=== PATIENT | female | born 1970 | race Caucasian/White ===

== ENCOUNTER 2017-06-08 20:11 | Outpatient (CLI) ==
[2012-10-29 12:13] VITALS: TEMP 97.6
[2016-05-23 11:24] VITALS: BMI 23.8
== END 2017-06-08 20:30 | disposition home or self-care (01) ==
LOC: AMBL 20:11
PROVIDERS: ATTEND Family Medicine
DX: S99.911A Unspecified injury of right ankle, initial encounter (principal); W00.0XXA Fall on same level due to ice and snow, initial encounter

== ENCOUNTER 2020-12-02 16:12 | Inpatient (IN) ==
[2020-12-02] MEDS ORDERED: VISTARIL INJ IM STA (17:11)
[2020-12-02] MEDS ORDERED: TORADOL IM STA (17:16)
[2020-12-02 17:26] LABS: BASOPHILS # (AUTO) 0.1 K/uL (0-0.2); BASOPHILS % (AUTO) 0.5 % (0.0-3.0); EOSINOPHILS # (AUTO) 0.2 K/ul (0.0-0.7); EOSINOPHILS % (AUTO) 1.5 % (0.0-7.0); HEMATOCRIT 46.7 % (37.0-47.0); HEMOGLOBIN 16.2 g/dl (12.0-16.0); IMMATURE GRANULOCYTE # (AUTO) 0.2 (0.0-1.0); IMMATURE GRANULOCYTE % (AUTO) 1.4 % (0.0-5.0); LYMPHOCYTES # (AUTO) 0.8 K/uL (0.60-3.4); LYMPHOCYTES % (AUTO) 7.7 (10.0-50.0); MEAN CORPUSCULAR HGB CONC 34.7 (31.8-35.4); MEAN CORPUSCULAR VOLUME 83.5 fl (81.0-99.0); MONOCYTES # (AUTO) 0.9 K/uL (0.4-2.0); MONOCYTES % (AUTO) 8.6 (0-10); NEUTROPHILS # (AUTO) 8.5 K/ul (2.0-6.9); NEUTROPHILS % (AUTO) 80.3 % (42.2-75.2); PLATELET COUNT 236 10^3/uL (140-440); RDW COEFFICIENT OF VARIATION 12.7 % (11.6-14.8); RED BLOOD COUNT 5.59 10^6/ul (4.20-5.40); WHITE BLOOD COUNT 10.62 K/ul (4.6-10.2)
[2020-12-02 17:39] LABS: ALANINE AMINOTRANSFERASE 70.4 U/L (0-35); ALBUMIN 4.24 g/dL (3.5-5.0); ALKALINE PHOSPHATASE 272.9 U/L (38-126); ASPARTATE AMINO TRANSFERASE 48.4 U/L (14-36); BILIRUBIN,TOTAL 0.76 mg/dL (0.2-1.3); BLOOD UREA NITROGEN 8.3 mg/dL (7-17); CALCIUM 9.11 mg/dL (8.4-10.2); CARBON DIOXIDE 19.9 mmol/L (22-30.0); CHLORIDE 100.8 mmol/L (98-107); CREATININE 0.54 mg/dL (0.60-1.30); POTASSIUM 4.63 mmol/L (3.5-5.1); SODIUM 129.1 mmol/L (134.5-145); TOTAL PROTEIN 6.98 g/dL (6.3-8.2)
[2020-12-02 17:43] LABS: SERUM PREGNANCY NEGATIVE (NEGATIVE)
[2020-12-02] MEDS ORDERED: HUMULIN R SUBCUT ONE (17:50)
[2020-12-02 18:03] LABS: BILIRUBIN,URINE Negative (NEGATIVE); CLARITY,URINE Clear (CLEAR); COLOR,URINE Yellow (YELLOW); KETONES,URINE 1+ (NEGATIVE); LEUKOCYTE ESTERASE ,URINE Negative (NEGATIVE); NITRITE,URINE Negative (NEGATIVE); PH,URINE 5.5 (5-9); PROTEIN,URINE Negative (NEGATIVE); URINE, BLOOD 1+ (NEGATIVE); UROBILINOGEN,URINE 0.2 (0.2)
--- NOTE | 2020-12-02 18:06 | CT ---
Exam: CT scan of the thorax without contrast. Date: 12/02/2020. Comparison: 01/01/2016. HISTORY: Chest mass. TECHNIQUE: Helical scan of the thorax was performed without contrast. FINDINGS: The thoracic inlet is normal. There is a stable 1.3 x 1.7 cm precarinal calcified lymph n ode with additional calcified lymph nodes also present in the mediastinum. The caliber of the cardia c chambers and thoracic aorta are normal. The spleen has a uniform attenuation. The attenuation of the liver is as low as 34 Hounsfield units. Cholecystectomy is noted. The stomach, pancreas and adr enal glands are normal. No acute osseous abnormalities are seen. Evaluation of lung window settings demonstrates scattered granulomatous calcifications. No suspiciou s pulmonary nodules, pleural fluid or consolidation is present. Impression: No acute intrathoracic findings. Old granulomatous disease. Hepatic steatosis. All CT scans are performed using dose optimization techniques as appropriate to the performed exam an d include at least one of the following: Automated exposure control, adjustment of the mA and/or kV according t o size, and the use of iterative reconstruction technique.
[2020-12-02 18:13] LABS: AMPHETAMINE SCREEN,URINE POSITIVE (NEGATIVE); BARBITURATE SCREEN,URINE NEGATIVE (NEGATIVE); BENZODIAZEPINES SCREEN,URINE NEGATIVE (NEGATIVE); CANNABINOID SCREEN,URINE POSITIVE (NEGATIVE); COCAIN SCREEN,URINE NEGATIVE (NEGATIVE); METHADONE URINE SCREEN NEGATIVE (NEGATIVE); METHAMPHETAMINES SCREEN,URINE POSITIVE (NEGATIVE); OPIATE SCREEN,URINE NEGATIVE (NEGATIVE); OXYCODONE URINE SCREEN NEGATIVE (NEGATIVE); PHENCYCLIDINE SCREEN,URINE NEGATIVE (NEGATIVE); PROPOXYPHENE URINE SCREEN NEGATIVE (NEGATIVE); TRICYCLIC ANTIDEPRESSANTS URIN NEGATIVE (NEGATIVE)
[2020-12-02 18:15] LABS: GLUCOSE, URINE (UA) 3+ (NEGATIVE)
[2020-12-02 18:16] LABS: BACTERIA,URINE 1+ (NOT PRESENT); URINE RBC, MICROSCOPIC 0-2 (0-2)
[2020-12-02 18:38] LABS: ABG O2 HGB 92.6 % (95-100); ABG PH 7.43 (7.35-7.45); BEecf -3.7 (-2.0-3.0); COHb 4.2 (0.5-1.5); HCO3 20.6 (21-28); MetHb 1.3 (0-1.5); TCO2 21.6 (19-24); sO2 96.3 % (94-98); tHb 16.4 g/dl (11.7-17.4)
--- NOTE | 2020-12-02 18:39 | ED.PDOC ---
General ED Provider: Dr. KYLEE GRIFFITH Chief Complaint: Diabetes Stated Complaint: Having severe vaginal pain from severe infection which she attributes to her uncontrolled blood glucose levels Time Seen by Provider: 12/02/20 16:37 Mode of Arrival: Walk-In Information Source: Patient Exam Limitations: No limitations Nursing and Triage Documentation Reviewed and Agree: Yes Does patient meet sepsis criteria?: No System Inflammatory Response Syndrome: Not Applicable Sepsis Protocol: For patient's 13 years and over: Temp is 96.8 and below OR 101 and greater Pulse >90 BPM Resp >20/minute Acutely Altered Mental Status Are patient's symptoms suggestive of a new infection, such as: -Pneumonia -Skin, Soft Tissue -Endocarditis -UTI -Bone, Joint Infection -Implantable Device -Acute Abdominal Infection -Wound Infection -Meningitis -Blood Stream Catheter Infection -Unknown Endocrine Complaint Exam Diabetic Complication Complaint/Exam Onset/Duration: 24 hrs-severe Vulvar pain and elevate BS Symptoms Are: Still present Timing: Constant Initial Severity: Moderate Current Severity: Severe Character: Alert Aggravating: Reports Recent illness Alleviating: Reports None Associated Signs and Symptoms: Reports Polydipsia, Polyuria and Abdominal pain Related History: Reports DM 2 and Insulin requiring; Denies Controlled and Compliant Last Glucometer Reading: > 500 Cardiac Risk Factors: Reports DM, Hypertension and Family history Related Surgical History: Reports None Acetone on Breath: No Dry Mucous Membranes: No Kussmaul Respirations: No Meningeal Signs: No Focal Weakness: None Focal Sensory Loss: None Gait: Unable Nystagmus Present: No Gag Reflex Present: Yes Finger to Nose: Normal Babinski Sign: Negative Right and Negative Left Differential Diagnoses: Hyperglycemia Review of Systems Review Of Systems Constitutional: Reports No symptoms Eyes: Reports No symptoms Ears, Nose, Mouth, Throat: Reports No symptoms Respiratory: Reports No symptoms Cardiac: Reports No symptoms GI: Reports No symptoms : Reports Burning, Dysuria, Frequency and Pain (Genital) Musculoskeletal: Reports No symptoms Skin: Reports No symptoms Neurological: Reports No symptoms Endocrine: Reports No symptoms Hematologic/Lymphatic: Reports No symptoms All Other Systems: Reviewed and Negative [facility] Medical History Anxiety Bipolar disorder Depression Malignant neoplasm of ovary Family History Mother Cardiac disease Grandfather/Grandmother Breast cancer, left 19 CHILD No problems noted. Other Cerebral palsy Epilepsy Social History Smoking and tobacco status: Current every day smoker Surgical History History of respiratory system surgery Status post cholecystectomy Status post hysterectomy Female Reproductive History Menstrual Hx Hysterectomy: Yes Hx Tubal Ligation: No Physical Exam Physical Exam Appearance: Reports Ill-appearing and Obese Ill-appearing: Moderate Pain Distress: Severe Eyes: Reports ALFA, EOMI, Conjunctiva clear and Conjunctiva inflammed ENT: Reports Ears normal, Nose normal and Oropharynx normal Neck: Supple Respiratory: Reports Airway patent, Breath sounds clear, Breath sounds equal and Breath sounds diminished Cardiovascular: Reports RRR, Pulses normal, No rub and No murmur GI/: Reports Soft, Nontender, No masses, Bowel sounds normal and No Organomegaly Musculoskeletal: Reports Normal strength, ROM intact and No edema Skin: Reports Warm, Dry and Normal color Neurological: Reports Sensation intact, Motor intact, Reflexes intact, Cranial nerves intact, Alert and Oriented Psychiatric: Reports Affect appropriate, Mood appropriate and Anxious Interpretation Radiology Interpretation Exam Interpreted: CT Scan ( stable 1.3 x 1.7 cm precarinal calcified lymph node with additional calcified lymph nodes also present in the mediastinum. ) EKG Interpretation Time of EKG #1: 20:17 Rate: Normal Rhythm: Sinus Ectopy: None Henderson: Left (JONNY)) ST Segment: Normal Interpretation: poss old septal infarct Re-Evaluation Re-Evaluation Time of Re-Evaluation: 20:00 Status: Improved Vital Signs Stable: Yes Appearance: NAD Lungs: Clear Skin: Warm and Dry Neuro: Alert and Oriented X3 CV: RRR Critical Care Note Critical Care Note Total Critical Care Time (mins): 60 Course Course Hematology/Chemistry: 12/02/20 17:20 12/02/20 17:20 Orders, Labs, Meds: Lab Review 12/02/20 12/02/20 12/02/20 16:40 16:40 17:20 WBC RBC Hgb Hct MCV MCH MCHC RDW Coeff of Juani Plt Count Immature Gran % (Auto) Neut % (Auto) Lymph % (Auto) Bledsoe % (Auto) Eos % (Auto) Baso % (Auto) Neut # (Auto) Lymph # (Auto) Bledsoe # (Auto) Eos # (Auto) Baso # (Auto) Immature Gran # (Auto) Puncture Site Base Excess O2 Saturation ABG pH ABG pCO2 ABG pO2 ABG HCO3 ABG Total CO2 Charan Test Hemoglobin Oxyhemoglobin Carboxyhemoglobin Total Hemoglobin FiO2 % Sodium Potassium Chloride Carbon Dioxide Anion Gap BUN Creatinine Estimated GFR (MDRD) BUN/Creatinine Ratio Glucose Hemoglobin A1c > 14.00 H Calcium Total Bilirubin AST ALT Alkaline Phosphatase Total Protein Albumin Globulin Albumin/Globulin Ratio Serum , Qual Urine Color Yellow Urine Clarity Clear Urine pH 5.5 Ur Specific [place] <=1.005 Urine Protein Negative Urine Glucose (UA) 3+ H Urine Ketones 1+ H Urine Blood 1+ H Urine Nitrite Negative Urine Bilirubin Negative Urine Urobilinogen 0.2 Ur Leukocyte Esterase Negative Urine Microscopic RBC 0-2 Urine Microscopic WBC 5-10 Ur Squamous Epith Cells 5-10 Urine Bacteria 1+ Urine Opiates Screen Negative Ur Oxycodone Screen Negative Urine Methadone Screen Negative Ur Propoxyphene Screen Negative Ur Barbiturates Screen Negative U Tricyclic Antidepress Negative Ur Phencyclidine Scrn Negative Ur Amphetamine Screen Positive H U Methamphetamines Scrn Positive H U Benzodiazepines Scrn Negative Urine Cocaine Screen Negative U Cannabinoids Screen Positive H 12/02/20 12/02/20 12/02/20 17:20 17:20 17:20 WBC 10.62 H RBC 5.59 H Hgb 16.2 H Hct 46.7 MCV 83.5 MCH 29.0 MCHC 34.7 RDW Coeff of Juani 12.7 Plt Count 236 Immature Gran % (Auto) 1.4 Neut % (Auto) 80.3 H Lymph % (Auto) 7.7 L Bledsoe % (Auto) 8.6 Eos % (Auto) 1.5 Baso % (Auto) 0.5 Neut # (Auto) 8.5 H Lymph # (Auto) 0.8 Bledsoe # (Auto) 0.9 Eos # (Auto) 0.2 Baso # (Auto) 0.1 Immature Gran # (Auto) 0.2 Puncture Site Base Excess O2 Saturation ABG pH ABG pCO2 ABG pO2 ABG HCO3 ABG Total CO2 Charan Test Hemoglobin Oxyhemoglobin Carboxyhemoglobin Total Hemoglobin FiO2 % Sodium 129.1 L Potassium 4.63 Chloride 100.8 Carbon Dioxide 19.9 L Anion Gap 13.03 BUN 8.3 Creatinine 0.54 L Estimated GFR (MDRD) 120.00 BUN/Creatinine Ratio 15.37 Glucose 609.0 H* Hemoglobin A1c Calcium 9.11 Total Bilirubin 0.76 AST 48.4 H ALT 70.4 H Alkaline Phosphatase 272.9 H Total Protein 6.98 Albumin 4.24 Globulin 2.74 Albumin/Globulin Ratio 1.54 Serum , Qual Negative Urine Color Urine Clarity Urine pH Ur Specific [place] Urine Protein Urine Glucose (UA) Urine Ketones Urine Blood Urine Nitrite Urine Bilirubin Urine Urobilinogen Ur Leukocyte Esterase Urine Microscopic RBC Urine Microscopic WBC Ur Squamous Epith Cells Urine Bacteria Urine Opiates Screen Ur Oxycodone Screen Urine Methadone Screen Ur Propoxyphene Screen Ur Barbiturates Screen U Tricyclic Antidepress Ur Phencyclidine Scrn Ur Amphetamine Screen U Methamphetamines Scrn U Benzodiazepines Scrn Urine Cocaine Screen U Cannabinoids Screen 12/02/20 18:30 WBC RBC Hgb Hct MCV MCH MCHC RDW Coeff of Juani Plt Count Immature Gran % (Auto) Neut % (Auto) Lymph % (Auto) Bledsoe % (Auto) Eos % (Auto) Baso % (Auto) Neut # (Auto) Lymph # (Auto) Bledsoe # (Auto) Eos # (Auto) Baso # (Auto) Immature Gran # (Auto) Puncture Site Rb Base Excess -3.7 L O2 Saturation 96.3 ABG pH 7.43 ABG pCO2 31.0 L ABG pO2 82.0 L ABG HCO3 20.6 L ABG Total CO2 21.6 Charan Test Y Hemoglobin 1.3 Oxyhemoglobin 92.6 L Carboxyhemoglobin 4.2 H Total Hemoglobin 16.4 FiO2 % 21.0 Sodium Potassium Chloride Carbon Dioxide Anion Gap BUN Creatinine Estimated GFR (MDRD) BUN/Creatinine Ratio Glucose Hemoglobin A1c Calcium Total Bilirubin AST ALT Alkaline Phosphatase Total Protein Albumin Globulin Albumin/Globulin Ratio Serum , Qual Urine Color Urine Clarity Urine pH Ur Specific [place] Urine Protein Urine Glucose (UA) Urine Ketones Urine Blood Urine Nitrite Urine Bilirubin Urine Urobilinogen Ur Leukocyte Esterase Urine Microscopic RBC Urine Microscopic WBC Ur Squamous Epith Cells Urine Bacteria Urine Opiates Screen Ur Oxycodone Screen Urine Methadone Screen Ur Propoxyphene Screen Ur Barbiturates Screen U Tricyclic Antidepress Ur Phencyclidine Scrn Ur Amphetamine Screen U Methamphetamines Scrn U Benzodiazepines Scrn Urine Cocaine Screen U Cannabinoids Screen Orders Category Date Time Status ADMIT PATIENT INPATIENT .TO [facility] (MONITORED BED) ADMISSION 12/02/20 20:00 Active ADMIT PATIENT INPATIENT .TO [facility] (MONITORED BED) ADMISSION 12/02/20 20:00 Completed ABG DRAW REQUEST Stat CARDIO 12/02/20 18:16 Completed EKG-(ED ONLY) Stat CARDIO 12/02/20 20:04 Completed DIABETIC TEACHING ONCE CARE 12/02/20 20:06 Active GIVE HS SNACK 2100 CARE 12/02/20 20:09 Active INTAKE & OUTPUT Q8HR CARE 12/02/20 20:07 Completed INTAKE & OUTPUT Q8HR CARE 12/02/20 20:09 Completed TELEMETRY MONITORING TELE CARE 12/02/20 20:00 Active VITAL SIGNS Q8HR CARE 12/02/20 20:08 Completed ADA 1800 ORLY. DIET DIETARY 12/02/20 Breakfast Ordered HS SNACK DIETARY 12/02/20 Dinner Ordered ED ACCUCHECK ASSESSMENT .ONCE EMERGENCY 12/02/20 19:37 Active IV [ED IV/MEDIPORT/POWERPORT] .ONCE EMERGENCY 12/02/20 17:18 Active ABG COOX Stat LAB 12/02/20 18:30 Completed CBC W/ AUTO DIFF Stat LAB 12/02/20 17:20 Completed CHLAMYDIA/GC AMPLIFICATION Stat LAB 12/02/20 16:40 Received CMP [COMPREHENSIVE METABOLIC PANEL] Stat LAB 12/02/20 17:20 Completed GENITAL CULTURE Stat LAB 12/02/20 16:40 Received HCG QUALITATIVE [SERUM ] Stat LAB 12/02/20 17:20 Completed HEMOGLOBIN A1C Stat LAB 12/02/20 17:20 Completed RAPID PLASMA REAGIN Stat LAB 12/02/20 16:40 Received RESPIRATORY PANEL 2.1 (PCR) Stat LAB 12/02/20 20:15 Completed UA [URINALYSIS C & S IF INDICATED] Stat LAB 12/02/20 16:40 Completed URINE CULTURE Stat LAB 12/02/20 16:40 Received URINE DRUG SCREEN (RAPID FOR ED) [DRUG SCREEN, URINE, LAB 12/02/20 16:40 Completed RAPID] Stat VIRAL CULTURE Stat LAB 12/02/20 16:40 Received 0.9 % Sodium Chloride [Saline Flush] MEDS 12/02/20 17:18 Active 1 syr IVF PRN PRN Fluconazole [Diflucan] MEDS 12/02/20 19:00 Discontinued 150 mg PO ONCE ONE Hydroxyzine HCl [Vistaril Inj] MEDS 12/02/20 17:11 Discontinued 25 mg IM ONCE STA Insulin Regular, Human [Humulin R] MEDS 12/02/20 17:50 Discontinued 25 unit SUBCUT ONCE ONE Ketorolac Tromethamine [Toradol] MEDS 12/02/20 17:16 Discontinued 30 mg IM ONCE STA Sodium Chloride 0.9% [Sodium Chloride] 1,000 ml MEDS 12/02/20 21:00 Active IV QSHIFT Valacyclovir HCl [Valtrex] MEDS 12/02/20 18:56 Discontinued 1,000 mg PO ONCE ONE RESUSCITATION STATUS Routine OTHERS 12/02/20 20:[address] CHEST W/O CONTRAST Stat RADS 12/02/20 17:09 Completed Medications Generic Name Dose Route Start Last Admin Trade Name Freq PRN Reason Stop Dose Admin Fluconazole 150 mg 12/03/20 09:00 Fluconazole 150 Mg Tablet PO DAILY ABDIAS Sodium Chloride 1,000 mls @ 125 mls/hr 12/02/20 21:00 12/02/20 20:42 Sodium Chloride IV 125 mls/hr QSHIFT ABDIAS Administration Insulin Glargine 20 unit 12/03/20 09:00 Insulin Glargine,Hum.Rec.Anlog 100 Units[facility] [place] Sodium Chloride 1 syr 12/02/20 17:18 0.9% Sodium Chloride 10 Ml Disp.Syrin IVF PRN PRN To flush IV Valacyclovir HCl 1,000 mg 12/02/20 21:00 Valacyclovir Hcl 500 Mg Tablet PO Q8HR ABDIAS Discontinued Medications Generic Name Dose Route Start Last Admin Trade Name Freq PRN Reason Stop Dose Admin Fluconazole 150 mg 12/02/20 19:00 12/02/20 19:28 Fluconazole 150 Mg Tablet PO 12/02/20 19:01 150 mg ONCE ONE Administration Hydroxyzine HCl 25 mg 12/02/20 17:11 12/02/20 17:30 Hydroxyzine Hcl 25 Mg/Ml Vial IM 12/02/20 17:12 25 mg ONCE STA Administration Insulin Human Regular 25 unit 12/02/20 17:50 12/02/20 18:05 Insulin Regular, Human 100 Unit/Ml (3ml) Vial SUBCUT 12/02/20 17:51 25 unit ONCE ONE Administration Ketorolac Tromethamine 30 mg 12/02/20 17:16 12/02/20 17:31 Ketorolac Tromethamine 30 Mg/Ml Vial IM 12/02/20 17:17 30 mg ONCE STA Administration Valacyclovir HCl 1,000 mg 12/02/20 18:56 12/02/20 19:46 Valacyclovir Hcl 500 Mg Tablet PO 12/02/20 18:57 1,000 mg ONCE ONE Administration Vital Signs: Temp Pulse Resp BP Pulse Ox 12/02/20 16:14 98.3 F 102 H 20 149/99 H 96 Discharge Plan Discharge Patient Disposition: ADMITTED INPATIENT Discharge Problem: Diabetes mellitus type 2, uncontrolled, Acute vulvovaginitis, Substance abuse, Genital herpes ED Provider: KYLEE GRIFFITH Physician Progress Note: []Discussed clinical findings and impressions with patient; Prefers admission for attempts of controlling Diabetes/does not have glucometer with her. Denies prior genital blisters or herpes infection
[2020-12-02] MEDS ORDERED: VALTREX PO ONE (18:56)
[2020-12-02] MEDS ORDERED: DIFLUCAN PO ONE (19:00)
[2020-12-02 20:21] LABS: BORDETELLA PARAPERTUSSIS (PCR) NOT DETECTED (NOT DETECT); BORDETELLA PERTUSSIS (PCR) NOT DETECTED (NOT DETECT); CHLAMYDIA PNEUMONIAE (PCR) NOT DETECTED (NOT DETECT); CORONAVIRUS 229E (PCR) NOT DETECTED (NOT DETECT); CORONAVIRUS HKU1 (PCR) NOT DETECTED (NOT DETECT); CORONAVIRUS NL63 (PCR) NOT DETECTED (NOT DETECT); CORONAVIRUS OC43 (PCR) NOT DETECTED (NOT DETECT); HUMAN METAPNEUMOVIRUS (PCR) NOT DETECTED (NOT DETECT); HUMAN RHINOVIRUS/ENTEROV (PCR) NOT DETECTED (NOT DETECT); INFLUENZA B (PCR) NOT DETECTED (NOT DETECT); MYCOPLASMA PNEUMONIAE (PCR) NOT DETECTED (NOT DETECT); PARAINFLUENZA VIRUS 1 (PCR) NOT DETECTED (NOT DETECT); PARAINFLUENZA VIRUS 2 (PCR) NOT DETECTED (NOT DETECT); PARAINFLUENZA VIRUS 3 (PCR) NOT DETECTED (NOT DETECT); PARAINFLUENZA VIRUS 4 (PCR) NOT DETECTED (NOT DETECT); RESPIRATORY SYNCYTIAL V (PCR) NOT DETECTED (NOT DETECT); SARS_COV_2 (PCR) NOT DETECTED (NOT DETECT)
[2020-12-02] MEDS: SODIUM CHLORIDE 1,000 ML IV SCH (20:42)
[2020-12-02 21:06] LABS: ADENOVIRUS (PCR) NOT DETECTED (NOT DETECT)
[2020-12-02] MEDS: VALTREX PO SCH (21:56)
[2020-12-02] MEDS: TORADOL IVP PRN (22:37)
[2020-12-02 22:47] VITALS: BMI 27.3
[2020-12-03] MEDS: VALTREX PO SCH ×3 (04:04→20:25)
[2020-12-03] MEDS: SODIUM CHLORIDE 1,000 ML IV SCH ×5 (04:04→20:26)
[2020-12-03] MEDS: TORADOL IVP PRN (04:08)
[2020-12-03] MEDS: HUMULIN R SUBCUT PRN ×4 (05:43→20:26)
[2020-12-03] MEDS: LANTUS SUBCUT SCH (09:06)
[2020-12-03] MEDS: DIFLUCAN PO SCH (09:06)
[2020-12-04] MEDS: TORADOL IVP PRN ×3 (02:15→16:26)
[2020-12-04] MEDS: SODIUM CHLORIDE 1,000 ML IV SCH ×4 (04:45→21:26)
[2020-12-04 05:00] LABS: BASOPHILS % (AUTO) 0.5 % (0.0-3.0); EOSINOPHILS # (AUTO) 0.2 K/ul (0.0-0.7); EOSINOPHILS % (AUTO) 2.7 % (0.0-7.0); HEMOGLOBIN 14.8 g/dl (12.0-16.0); IMMATURE GRANULOCYTE # (AUTO) 0.1 (0.0-1.0); IMMATURE GRANULOCYTE % (AUTO) 1.1 % (0.0-5.0); LYMPHOCYTES # (AUTO) 1.3 K/uL (0.60-3.4); LYMPHOCYTES % (AUTO) 16.4 (10.0-50.0); MEAN CORPUSCULAR HGB CONC 34.4 (31.8-35.4); MEAN CORPUSCULAR VOLUME 84.3 fl (81.0-99.0); MONOCYTES # (AUTO) 0.8 K/uL (0.4-2.0); MONOCYTES % (AUTO) 10.1 (0-10); NEUTROPHILS # (AUTO) 5.5 K/ul (2.0-6.9); NEUTROPHILS % (AUTO) 69.2 % (42.2-75.2); PLATELET COUNT 209 10^3/uL (140-440); WHITE BLOOD COUNT 7.91 K/ul (4.6-10.2)
[2020-12-04 05:15] LABS: ALANINE AMINOTRANSFERASE 71.5 U/L (0-35); ALBUMIN 3.36 g/dL (3.5-5.0); ALKALINE PHOSPHATASE 200.9 U/L (38-126); ASPARTATE AMINO TRANSFERASE 57.8 U/L (14-36); BILIRUBIN,TOTAL 0.52 mg/dL (0.2-1.3); BLOOD UREA NITROGEN 6.1 mg/dL (7-17); CALCIUM 8.6 mg/dL (8.4-10.2); CARBON DIOXIDE 24.2 mmol/L (22-30.0); CHLORIDE 109.1 mmol/L (98-107); CREATININE 0.45 mg/dL (0.60-1.30); GLUCOSE 267.2 mg/dL (74-106); POTASSIUM 4.03 mmol/L (3.5-5.1); SODIUM 136.3 mmol/L (134.5-145)
[2020-12-04] MEDS: VALTREX PO SCH ×3 (05:48→20:27)
[2020-12-04] MEDS: HUMULIN R SUBCUT PRN ×4 (05:48→20:31)
[2020-12-04] MEDS: DIFLUCAN PO SCH (08:41)
[2020-12-04] MEDS: LANTUS SUBCUT SCH (08:42)
--- NOTE | 2020-12-04 10:19 | PCM.PROG ---
Date Seen by Provider: 12/04/20 Time Seen by Provider: 10:18 Subjective: pt improving, glucose 267 Objective: Vitals: T=97.5 F, P=80, R=18, KX=880/88, SPO2=97 HEENT: [] Neck: [] Lungs: [] CVS: [] Abdomen: [] Extremities: [] Neurological: [] Skin: [] Lab/Tests/Diagnostic Imaging: [] Plan: continue present medical regimen, care to Dr Ferraro at 19:00
[2020-12-05] MEDS: TORADOL IVP PRN ×3 (00:19→16:43)
[2020-12-05] MEDS: SODIUM CHLORIDE 1,000 ML IV SCH ×2 (06:29→16:07)
[2020-12-05] MEDS: HUMULIN R SUBCUT PRN ×4 (06:48→20:51)
[2020-12-05] MEDS: VALTREX PO SCH ×3 (06:48→20:44)
[2020-12-05] MEDS: DIFLUCAN PO SCH (09:15)
[2020-12-05] MEDS: LANTUS SUBCUT SCH (09:15)
[2020-12-05] MEDS: JANUVIA PO SCH (13:56)
--- NOTE | 2020-12-05 21:28 | PCM.PROG ---
Date Seen by Provider: 12/05/20 Time Seen by Provider: 09:50 Subjective: Feeling better; Anxious for discharge. Review of record and discussion reveals no diabetic teaching by staff as ordered Objective: Vitals: T=97.2 F, P=73, R=16, YZ=645/91, SPO2=99 HEENT: Clear Neck: Supple, non tender Lungs: CTA CVS: HRRR Abdomen: Soft non tender Extremities: No tenderness or edema Neurological: Grossly normal Skin: [] Lab/Tests/Diagnostic Imaging: Cannot locate results of cultures obtained on Sat (1) Diabetes mellitus type 2, uncontrolled: Status: Acute Code(s): E11.65 - Type 2 diabetes mellitus with hyperglycemia SNOMED Code(s): 550717220 (2) Acute vulvovaginitis: Status: Acute Code(s): N76.0 - Acute vaginitis SNOMED Code(s): 80883279 Plan: Continue present tx Strive to improve Glucose readings Begin Gustabo Repeat lab in am
[2020-12-06] MEDS: TORADOL IVP PRN (03:30)
[2020-12-06] MEDS: VALTREX PO SCH ×3 (04:53→20:36)
[2020-12-06 05:26] LABS: BASOPHILS # (AUTO) 0.1 K/uL (0-0.2); BASOPHILS % (AUTO) 0.8 % (0.0-3.0); EOSINOPHILS # (AUTO) 0.4 K/ul (0.0-0.7); EOSINOPHILS % (AUTO) 4.1 % (0.0-7.0); HEMATOCRIT 47.8 % (37.0-47.0); HEMOGLOBIN 15.9 g/dl (12.0-16.0); IMMATURE GRANULOCYTE # (AUTO) 0.2 (0.0-1.0); IMMATURE GRANULOCYTE % (AUTO) 1.9 % (0.0-5.0); LYMPHOCYTES # (AUTO) 2.1 K/uL (0.60-3.4); LYMPHOCYTES % (AUTO) 24.4 (10.0-50.0); MEAN CORPUSCULAR HEMOGLOBIN 28.1 pg (27.0-31.0); MEAN CORPUSCULAR HGB CONC 33.3 (31.8-35.4); MEAN CORPUSCULAR VOLUME 84.5 fl (81.0-99.0); MONOCYTES # (AUTO) 0.7 K/uL (0.4-2.0); MONOCYTES % (AUTO) 8.7 (0-10); NEUTROPHILS # (AUTO) 5.1 K/ul (2.0-6.9); NEUTROPHILS % (AUTO) 60.1 % (42.2-75.2); PLATELET COUNT 286 10^3/uL (140-440); RDW COEFFICIENT OF VARIATION 12.9 % (11.6-14.8); RED BLOOD COUNT 5.66 10^6/ul (4.20-5.40); WHITE BLOOD COUNT 8.54 K/ul (4.6-10.2)
[2020-12-06 05:37] LABS: ALANINE AMINOTRANSFERASE 74.5 U/L (0-35); ALBUMIN 3.74 g/dL (3.5-5.0); ALKALINE PHOSPHATASE 183.9 U/L (38-126); ASPARTATE AMINO TRANSFERASE 50.4 U/L (14-36); BILIRUBIN,TOTAL 0.59 mg/dL (0.2-1.3); BLOOD UREA NITROGEN 12.3 mg/dL (7-17); CALCIUM 8.96 mg/dL (8.4-10.2); CARBON DIOXIDE 25.8 mmol/L (22-30.0); CHLORIDE 106.5 mmol/L (98-107); CREATININE 0.62 mg/dL (0.60-1.30); GLUCOSE 221.4 mg/dL (74-106); POTASSIUM 4.11 mmol/L (3.5-5.1); SODIUM 138.1 mmol/L (134.5-145); TOTAL PROTEIN 6.6 g/dL (6.3-8.2)
[2020-12-06] MEDS: HUMULIN R SUBCUT PRN ×4 (06:35→20:36)
--- NOTE | 2020-12-06 07:42 | PCM.PROG ---
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
[2020-12-06] MEDS: JANUVIA PO SCH (09:02)
[2020-12-06] MEDS: DIFLUCAN PO SCH (09:02)
[2020-12-06] MEDS: LANTUS SUBCUT SCH (09:02)
[2020-12-06] MEDS ORDERED: TYLENOL PO PRN (12:05)
[2020-12-07 05:07] LABS: BASOPHILS # (AUTO) 0.1 K/uL (0-0.2); BASOPHILS % (AUTO) 0.7 % (0.0-3.0); EOSINOPHILS # (AUTO) 0.3 K/ul (0.0-0.7); EOSINOPHILS % (AUTO) 3.1 % (0.0-7.0); HEMATOCRIT 45.9 % (37.0-47.0); HEMOGLOBIN 15.5 g/dl (12.0-16.0); IMMATURE GRANULOCYTE # (AUTO) 0.2 (0.0-1.0); IMMATURE GRANULOCYTE % (AUTO) 1.9 % (0.0-5.0); LYMPHOCYTES # (AUTO) 1.5 K/uL (0.60-3.4); LYMPHOCYTES % (AUTO) 16.4 (10.0-50.0); MEAN CORPUSCULAR HEMOGLOBIN 28.5 pg (27.0-31.0); MEAN CORPUSCULAR HGB CONC 33.8 (31.8-35.4); MEAN CORPUSCULAR VOLUME 84.5 fl (81.0-99.0); MONOCYTES # (AUTO) 0.9 K/uL (0.4-2.0); MONOCYTES % (AUTO) 9.3 (0-10); NEUTROPHILS # (AUTO) 6.3 K/ul (2.0-6.9); NEUTROPHILS % (AUTO) 68.6 % (42.2-75.2); PLATELET COUNT 289 10^3/uL (140-440); RDW COEFFICIENT OF VARIATION 12.9 % (11.6-14.8); RED BLOOD COUNT 5.43 10^6/ul (4.20-5.40); WHITE BLOOD COUNT 9.11 K/ul (4.6-10.2)
[2020-12-07 05:28] LABS: ALANINE AMINOTRANSFERASE 65.6 U/L (0-35); ALBUMIN 3.74 g/dL (3.5-5.0); ALKALINE PHOSPHATASE 178.9 U/L (38-126); ASPARTATE AMINO TRANSFERASE 52.9 U/L (14-36); BILIRUBIN,TOTAL 0.5 mg/dL (0.2-1.3); BLOOD UREA NITROGEN 9.6 mg/dL (7-17); CALCIUM 8.88 mg/dL (8.4-10.2); CARBON DIOXIDE 24.9 mmol/L (22-30.0); CHLORIDE 105.8 mmol/L (98-107); CREATININE 0.67 mg/dL (0.60-1.30); GLUCOSE 330.4 mg/dL (74-106); POTASSIUM 4.06 mmol/L (3.5-5.1); SODIUM 138.1 mmol/L (134.5-145); TOTAL PROTEIN 6.51 g/dL (6.3-8.2)
[2020-12-07] MEDS: VALTREX PO SCH (05:28)
[2020-12-07] MEDS: HUMULIN R SUBCUT PRN (05:58)
[2020-12-07 06:06] VITALS: BP 152/109; TEMP 97.2
[2020-12-07] MEDS: JANUVIA PO SCH (09:13)
[2020-12-07] MEDS: LANTUS SUBCUT SCH (09:14)
[2020-12-07] MEDS: DIFLUCAN PO SCH (09:14)
[2020-12-07 14:23] LABS: GENITAL CULTURE Final report (.)
[2020-12-12 14:48] LABS: HSV 1 IGM ANTIBODIES <1:10 titer (<1:10); HSV 2 IGM ANTIBODIES <1:10 titer (<1:10)
--- NOTE | 2021-01-09 08:57 | PN ---
DATE OF VISIT: 12/03/20 SUBJECTIVE: This is a lady admitted by Dr. Batres yesterday for uncontrolled blood sugars. She is a diabetic patient and was actually admitted for a herpetic infection. Nursing staff is treating her with basal insulin plus sliding scale. She is resting comfortably this morning. OBJECTIVE: VITAL SIGNS: Temperature 97.6, pulse 89, respiratory rate 24, BP 158/97 HEENT: Pupils are round. NECK: Supple. CHEST: Clear. CARDIOVASCULAR: Regular rate and rhythm. ABDOMEN: Soft, nontender. PELVIC: Deferred secondary to exam on admission. EXTREMITIES: Distal extremities without cyanosis or edema. ASSESSMENT: 1. Vaginitis presumably herpetic. 2. Uncontrolled diabetes Type 2. PLAN: 1. I reviewed their insulin orders. 2. Her pain is controlled. She is resting comfortably. 3. We have asked for a repeat CBC and CMP in the morning. ANJALI
--- NOTE | 2021-02-13 08:28 | PCM.DC ---
1) Acute vulvovaginitis, 2) HSV I Infection 3.Diabetes mellitus type 2, uncontrolled, 3)Hx of Substance abuse (1) Diabetes mellitus type 2, uncontrolled: Status: Acute Code(s): E11.65 - Type 2 diabetes mellitus with hyperglycemia SNOMED Code(s): 995721868 (2) Acute vulvovaginitis: Status: Acute Code(s): N76.0 - Acute vaginitis SNOMED Code(s): 12175600 (3) Genital herpes: Status: Acute Code(s): A60.00 - Herpesviral infection of urogenital system, unspecified SNOMED Code(s): 48070578 (4) Substance abuse: Status: Acute Code(s): F19.10 - Other psychoactive substance abuse, uncomplicated SNOMED Code(s): 24703852 Reason for Hospitalization: Hospitalized for uncontrolled Vulvo -Vaginal pain of recent onset; States had a similar "yeast Infection" and denies previous known Herpes infection. Due to clinical findings Valacyclovir was initiated. Symptoms markedly improved in 36 hrs. Diabetic management with Insulin therapy initiated and diabetic teaching provided.Patient made progressive improvement and was wanting discharge to home. Agreed to follow dietary changes necessary for diabetic diet. Provided with Rx for Glucometer and supplies to monitor her Glucose readings 2-4 times daily. take those results TO PCP in 1 week. Remain on Valtrex and discuss dx and treatement with PCP Strongly encourage obtaining maintenance therapyand Avoiding unprotected sexual intercourse. Prognosis at Discharge: Fair Condition at Discharge: Stable and improved Medications at Discharge: Ambulatory Orders Medication Instructions Recorded sumatriptan succinate 50 mg tablet 50 mg SUBLINGUAL DAILY PRN #6 wafer 05/23/16 (Imitrex) insulin glargine 100 unit/mL (3 20 unit SUBCUT QAM 12/02/20 mL) subcutaneous pen (Basaglar KwikPen U-100 Insulin) metformin 1,000 mg tablet 1,000 mg PO BID 12/02/20 insulin lispro 100 unit/mL 10 unit SUBCUT ACHS #10 ml 12/07/20 subcutaneous pen sitagliptin 50 mg tablet (Januvia) 100 mg PO DAILY #60 tab 12/07/20 valacyclovir 500 mg tablet 1,000 mg PO TID #15 tab 12/07/20 Lab/Diagnostics: Refer to chart Education Provided to Patient and Family: Discussed at length with patient importance of monitoring Glucose readings and remain compliant with treatment et diet compliance with medications. Is being discharged to home and medications prescribed with her stated understanding. Explained the relevance of her genital pain and the etiology of the HSV, treatment options, (long and short term) See PVP with in 1 week once she arrives back to her home community Follow-ups: PCP Discharge Disposition: Home Hospital Course: The patient presented to the emergency room with a chief complaint of severe pain in the vaginal region. She admitted to a similar "yeast infection " In the past but have not been previously diagnosed with herpes infection. Physical examination in the ER revealed clinical findings suspicious for genital herpes therefore Cultures were obtained and viral testing obtained.She was empirically started on antiviral therapy. Because of the severity of her pain as well as the her uncontrolled nature Of her diabetes mellitus I admitted her to the hospital for definitive treatment. In addition the patient states she did not currently have a diabetic monitor in her possession. Hospital Course: Upon admission of the hospital the patient was Initiated an appropriate therapy for treatment of her diabetes. Glucose levels are monitored. In addition in Valtrex 1 gm Was administered TID. Daily glucose levels Or monitored and the results of all diagnostic lab may be found in the hospital chart for your further perusal. The patient's condition improved and she was anxious for discharge so she could return to her home in [place]. She was advised to follow up with her physician within one week before then if she had further problems to go to urgent care or the emergency room. And this and she was instructed to monitor her glucose levels and take her medication for as directed .She was discharged in stable improved condition. Plan: Obtain new Rx including glucose monitor. follow up with her physician within one week before then if she had further problems to go to urgent care or the emergency room. monitor her glucose levels and take her medication for as directed .She was discharged in stable improved condition.
== END 2020-12-07 09:39 | disposition home or self-care (01) | DRG 641 ==
LOC: ED 16:12 → MEDSURG A 20:12
PROVIDERS: ADMIT Emergency Medicine; ATTEND Emergency Medicine
DX: R35.8 Other polyuria; R30.0 Dysuria; R10.9 Unspecified abdominal pain; A60.00 Herpesviral infection of urogenital system, unspecified; F19.10 Other psychoactive substance abuse, uncomplicated; R30.9 Painful micturition, unspecified; R63.1 Polydipsia; R35.0 Frequency of micturition; N76.0 Acute vaginitis